=== PATIENT | male | born 1945 | race Caucasian/White ===

== ENCOUNTER 2019-02-07 20:45 | Day surgery (SDC) | payer MEDICARE ==
[~2019-02-07] VITALS: Ht 172.7 cm; Wt 83.7 kg
[~2019-02-07 20:45] MED LIST: HYDR-2890 PO
[2019-02-07] MEDS ORDERED: NS IV 1000 ML 1,000 ML ONE ×2 (20:51→21:23)
[2019-02-07] MEDS ORDERED: ASPIRIN 81 MG CHEW (CHILDREN'S ASA) PO ONE (21:00)
[2019-02-07] MEDS: NITROGLYCERIN 0.4 MG SL TABS BTL 25'S SL PRN ×3 (21:03→21:13)
[2019-02-07 21:04] LABS: BASOPHILS % (AUTO) 0 % (0-10); EOSINOPHILS # (AUTO) 0.2 10^3/uL (0.0-0.3); EOSINOPHILS % (AUTO) 2 % (0-10); HEMATOCRIT 47 % (40-54); HEMOGLOBIN 15.5 G/DL (13.3-17.7); LYMPHOCYTES # (AUTO) 3.6 X 10^3 (1.0-4.0); LYMPHOCYTES % (AUTO) 28 % (12-44); MEAN CORPUSCULAR HEMOGLOBIN 32 PG (25-34); MEAN CORPUSCULAR HGB CONC 33 G/DL (32-36); MEAN CORPUSCULAR VOLUME 97 FL (80-99); MEAN PLATELET VOLUME 10.4 FL (7.4-10.4); MONOCYTES # (AUTO) 0.6 X 10^3 (0.0-1.0); MONOCYTES % (AUTO) 5 % (0-12); NEUTROPHILS # (AUTO) 8.5 X 10^3 (1.8-7.8); NEUTROPHILS % (AUTO) 66 % (42-75); PLATELET COUNT 303 10^3/uL (130-400); RED CELL DISTRIBUTION WIDTH 14.3 % (10.0-14.5)
--- NOTE | 2019-02-07 21:12 | ED Chest Pain ---
General Chief Complaint: Chest Pain Stated Complaint: HEAVY PAIN IN HEART Nursing Triage Note: pt arrives with c/o "heavy chest" onset 1 hour prior to arrival. pt states he takes a full dose of asa daily. pt states history of copd. pt is a daily drinker. pt states he also feels clammy. heart rate of 40-50 currently. Nursing Sepsis Screen: No Definite Risk Source: patient Exam Limitations: no limitations History of Present Illness Date Seen by Provider: Feb 07, 2019 Time Seen by Provider: 20:48 Initial Comments Here with report of chest pressure and heaviness that started approximately one hour prior to arrival. Associated with sweating and low heart rate in the 40s and 50s. Also had radiation to the left arm. Never had anything like this before. Does smoke. Has not had previous heart catheter. Denies nausea and vomiting. Does feel weak and overall not right. Timing/Duration: 1 hour Severity/Quality: moderate, pressure Location: central Radiation: arms (left) Prior CP/Workup: no prior cardiac workup ASA po RETAIL BUSINESS MANAGER: Yes (325 mg) NTG SL RETAIL BUSINESS MANAGER: No Associated Symptoms: No abdominal pain, No back pain; diaphoresis; No fever/chills, No nausea/vomiting; shortness of breath; No weakness Allergies and Home Medications Allergies Coded Allergies: No Known Drug Allergies (Unverified , 10/06/11) Home Medications Hydrocodone Bit/Acetaminophen 1 Each Tablet, 1 EACH PO NEEDED Prescribed by: YANI MENCHACA on 10/06/11 1000 Patient Home Medication List Home Medication List Reviewed: Yes Review of Systems Review of Systems Constitutional: see HPI; No chills; diaphoresis; No fever EENTM: No Symptoms Reported Respiratory: No Symptoms Reported Cardiovascular: Chest Pain; Denies Edema; Irregular Heart Rate, Lightheadedness Gastrointestinal: Denies Nausea, Denies Vomiting Genitourinary: No Symptoms Reported Musculoskeletal: No back pain; muscle pain Skin: no symptoms reported Psychiatric/Neurological: No Symptoms Reported All Other Systems Reviewed Negative Unless Noted: Yes Past Ujobdau-Qqrmsi-Ihhoqm Hx Past Med/Social Hx: Reviewed Nursing Past Med/Soc Hx Patient Social History Alcohol Use: Regular Use Alcohol Beverage of Choice: [place], Vodka Recreational Drug Use: No Smoking Status: Current Everyday Smoker Recent Foreign Travel: No Contact w/Someone Who Travel: No Recent Infectious Disease Expo: No Physical Abuse: No Sexual Abuse: No Mistreated: No Fear: No Past Medical History Surgeries: Yes Orthopedic Respiratory: Yes COPD Cardiac: Yes High Cholesterol Neurological: No Genitourinary: No Gastrointestinal: No Musculoskeletal: No Endocrine: No Family Medical History Reviewed Nursing Family Hx No Pertinent Family Hx Physical Exam Vital Signs Vital Signs - First Documented 02/07/19 20:51 Temp 97.6 Pulse 45 Resp 18 B/P (MAP) 156/89 (111) Capillary Refill : Less Than 3 Seconds Height, Weight, BMI Height: 5'8" Weight: 180lbs. oz. 81.237713df; 27.37 BMI Method:Stated General Appearance: WD/WN, Mild Distress HEENT: PERRL/EOMI, Pharynx Normal Neck: Non Tender, Supple Respiratory: No Accessory Muscle Use, Wheezing (bilateral bases) Cardiovascular: No Murmur, Bradycardia Gastrointestinal: Non Tender, Soft Extremity: Normal Range of Motion, Non Tender Neurologic/Psychiatric: Alert, Oriented x3 Skin: Normal Color, Warm/Dry Progress/Results/Core Measures Results/Orders Lab Results Laboratory Tests Test 02/07/19 20:53 Range/Units White Blood Count 13.0 H 4.3-11.0 10^3/uL Red Blood Count 4.90 4.35-5.85 10^6/uL Hemoglobin 15.5 13.3-17.7 G/DL Hematocrit 47 40-54 % Mean Corpuscular Volume 97 80-99 FL Mean Corpuscular Hemoglobin 32 25-34 PG Mean Corpuscular Hemoglobin Concent 33 32-36 G/DL Red Cell Distribution Width 14.3 10.0-14.5 % Platelet Count 303 130-400 10^3/uL Mean Platelet Volume 10.4 7.4-10.4 FL Neutrophils (%) (Auto) 66 42-75 % Lymphocytes (%) (Auto) 28 12-44 % Monocytes (%) (Auto) 5 0-12 % Eosinophils (%) (Auto) 2 0-10 % Basophils (%) (Auto) 0 0-10 % Neutrophils # (Auto) 8.5 H 1.8-7.8 X 10^3 Lymphocytes # (Auto) 3.6 1.0-4.0 X 10^3 Monocytes # (Auto) 0.6 0.0-1.0 X 10^3 Eosinophils # (Auto) 0.2 0.0-0.3 10^3/uL Basophils # (Auto) 0.0 0.0-0.1 10^3/uL Sodium Level 144 135-145 MMOL/L Potassium Level 4.7 3.6-5.0 MMOL/L Chloride Level 107 98-107 MMOL/L Carbon Dioxide Level 25 21-32 MMOL/L Anion Gap 12 5-14 MMOL/L Blood Urea Nitrogen 15 7-18 MG/DL Creatinine 1.08 0.60-1.30 MG/DL Estimat Glomerular Filtration Rate > 60 BUN/Creatinine Ratio 14 Glucose Level 170 H 70-105 MG/DL Calcium Level 8.9 8.5-10.1 MG/DL Corrected Calcium 8.7 8.5-10.1 MG/DL Magnesium Level 2.2 1.6-2.4 MG/DL Total Bilirubin 0.3 0.1-1.0 MG/DL Aspartate Amino Transf (AST/SGOT) 29 5-34 U/L Alanine Aminotransferase (ALT/SGPT) 20 0-55 U/L Alkaline Phosphatase 58 40-136 U/L Total Protein 7.2 6.4-8.2 GM/DL Albumin 4.3 3.2-4.5 GM/DL My Orders Orders - AKILAH KNOWLES MD Cbc With Automated Diff (02/07/19 20:47) Magnesium (02/07/19 20:47) Chest 1 View, Ap/Pa Only (02/07/19 20:47) Ekg Tracing (02/07/19 20:47) Cardiac Profile 1 (02/07/19 20:47) Comprehensive Metabolic Panel (02/07/19 20:47) Myoglobin Serum (02/07/19 20:47) Protime With Inr (02/07/19 20:47) Partial Thromboplastin Time (02/07/19 20:47) O2 (02/07/19 20:47) Monitor-Rhythm Ecg Trace Only (02/07/19 20:47) Lipid Panel (02/08/19 06:00) Ed Iv/Invasive Line Start (02/07/19 20:47) Nitroglycerin 0.4 Mg Btl 25's (Nitrostat (02/07/19 21:00) Ns Iv 1000 Ml (Sodium Chloride 0.9%) (02/07/19 20:51) Ns Iv 1000 Ml (Sodium Chloride 0.9%) (02/07/19 21:15) Midazolam Injection (Versed Injection) (02/07/19 21:23) Fentanyl Injection (Sublimaze Injection (02/07/19 21:23) Heparin (Bolus Per Protocol) (Heparin (B (02/07/19 21:23) Ns Iv 1000 Ml (Sodium Chloride 0.9%) (02/07/19 21:23) Nitro Drip 83817 Mcg/D5w (Nitroglycerin (02/07/19 21:23) Heparin (Insurance Claims Assistant) (Heparin (Insurance Claims Assistant)) (02/07/19 21:23) Lidocaine 1% Inj 20 Ml (Xylocaine 1% Inj (02/07/19 21:23) Medications Given in ED Current Medications Medications Dose Ordered Sig/Himanshu Route Start Time Stop Time Status Last Admin Dose Admin Nitroglycerin 0.4 mg UD PRN SL 02/07/19 21:00 02/07/19 21:14 DC 02/07/19 21:13 0.4 MG Vital Signs/I&O 02/07/19 02/07/19 02/07/19 20:51 20:51 20:51 Temp 97.6 Pulse 45 Resp 18 B/P (MAP) 156/89 (111) Pulse Ox 95 95 O2 Delivery Room Air Room Air Room Air Blood Pressure Mean: 111 Progress Progress Note : Progress Note Seen and evaluated on arrival. IV, labs, EKG and chest x-ray ordered. ASA 324 initially ordered but canceled. Nitroglycerin sublingual ordered for chest pain. EKG concerning and I did discuss the case with Dr. Sheridan at 2054. Given my concerns and findings on EKG he has requested Insurance Claims Assistant to be activated. They were called. Findings concerns discussed with patient and family who agree with the plan. 2134: Patient to Insurance Claims Assistant. Dr. Sheridan is in with the patient. Pain has decreased to 3 out of 5 after 3 nitroglycerin sublingual. Patient did get 1 L of normal saline to maintain blood pressure. Initial ECG Impression Date: Feb 07, 2019 Initial ECG Impression Time: 20:50 Initial ECG Rate: 44 Initial ECG Rhythm: S.Lee Initial ECG Comparisson: No Previous ECG Available Comment Sinus bradycardia with borderline ST elevation in the lateral leads V3 through V5 and to a lesser extent V2 and V6. Abnormal EKG. No previous available for comparison. Interpreted by me. Diagnostic Imaging Diagonstic Imaging: Xray Plain Films/CT/US/NM/MRI: chest Comments NAME: RIGO EATON [facility] REC#: [id number] PT STATUS: REG ER : 1945 PHYSICIAN: AKILAH KNOWLES MD ADMIT DATE: 02/07/19/ER Signed Date of Exam: 02/07/19 CHEST 1 VIEW, AP/PA ONLY EXAM: Chest 1 view, AP/PA only. INDICATION: Chest heaviness. COMPARISON: CT chest from 07/27/2015. FINDINGS: Normal heart size and central pulmonary vascularity. Calcified aorta. No focal pulmonary opacity, pleural effusion or pneumothorax. No acute osseous findings. IMPRESSION: No acute cardiopulmonary findings. Dictated by: Dictated on workstation # [id number] Dict: 02/07/192108 Trans: 02/07/192114 Interpreted by: MILI WINSTON MD Electronically signed by: MILI WINSTON MD 02/07/192114 Departure Communication (Admissions) Time/Spoke to Admitting Phy: 20:55 Impression Primary Impression: Chest pain Qualified Codes: R07.9 - Chest pain, unspecified Disposition: 09 ADMITTED INPATIENT Condition: Stable Admissions Decision to Admit Reason: Admit from ER (General) Decision to Admit/Date: Feb 07, 2019 Time/Decision to Admit Time: 20:55 Departure-Patient Inst. Referrals: NO,LOCAL PHYSICIAN (PCP) Primary Care Physician AKILAH KNOWLES MD Feb 07, 2019 21:12
[2019-02-07] MEDS ORDERED: MIDAZOLAM 5 MG/5 ML (VERSED) VIAL ONE (21:23)
[2019-02-07] MEDS ORDERED: HEParin 1000 UNIT/ML (10ML VIAL) FOR BOLUS ONE (21:23)
[2019-02-07] MEDS ORDERED: fentaNYL INJECTION 100 MCG/2 ML AMP ONE (21:23)
[2019-02-07] MEDS ORDERED: NITRO DRIP 25000 MCG/D5W 0 ML IV ONE (21:23)
[2019-02-07] MEDS ORDERED: HEParin (CATH LAB) 2,000 ML IV ONE (21:23)
[2019-02-07] MEDS ORDERED: LIDOCAINE 1% INJ 20 ML 20 ML VIAL ONE (21:23)
[2019-02-07] MEDS: NS IV 1000 ML 1,000 ML IV SCH ×3 (21:24→23:38)
[2019-02-07 21:27] LABS: INR 1.4 (0.8-1.4); PROTHROMBIN TIME PATIENT 17.7 SEC (12.2-14.7)
[2019-02-07 21:33] LABS: ALANINE AMINOTRANSFERASE 20 U/L (0-55); ALBUMIN 4.3 GM/DL (3.2-4.5); ALKALINE PHOSPHATASE 58 U/L (40-136); BILIRUBIN,TOTAL 0.3 MG/DL (0.1-1.0); BUN/CREATININE RATIO 14; CALCIUM 8.9 MG/DL (8.5-10.1); CARBON DIOXIDE 25 MMOL/L (21-32); CHLORIDE 107 MMOL/L (98-107); CREATININE SERUM 1.08 MG/DL (0.60-1.30); GFR ESTIMATED > 60; GLUCOSE 170 MG/DL (70-105); MAGNESIUM 2.2 MG/DL (1.6-2.4); POTASSIUM 4.7 MMOL/L (3.6-5.0); SODIUM 144 MMOL/L (135-145); TOTAL PROTEIN 7.2 GM/DL (6.4-8.2)
[2019-02-07] MEDS ORDERED: EPTIFIBATIDE BOLUS 20 ML IV ONE (21:46)
--- NOTE | 2019-02-07 21:48 | Cardiology History & Physical ---
HPI-Cardiology Cardiology H&P Date of Admission 02/07/19 Primary Care Physician Carly,Local Physician Attending Physician Luiz Sheridan MD, MA FACP [facility] Consulting Physician STEVEN CC: Chest pain HPI: 73 yo man with onset of chest pain 1-2 hours prior to admission radiating to L arm and shoulder and associated with some diaphoresis, mod in intensity, improved but not relieved with s/l NTG, not experienced before. Has chronic, slowly progressive exertional shortness of breath. Denies palp or syncope or ankle swelling Review of Systems-Cardiology Review of Systems Constitutional: No weight loss, No weight gain Eyes: No vision change Ears/Nose/Throat: No ear discharge, No nasal drainage, No recent hearing loss Cardiovascular: As described under HPI Gastrointestinal: No constipation, No diarrhea, No nausea, No vomiting Genitourinary: No dysuria, No hematuria, No urine frequency changes Musculoskeletal: No back pain, No joint pain Skin: No rash, No ulcerations Psychiatric/Neurological: No seizure, No focal weakness, No syncope Hematologic: No bleeding abnormalities All Other Systems Reviewed Negative Unless Noted: Yes UOM-[place]qux Hx Patient Social History Alcohol Use: Regular Use Recreational Drug Use: No Smoking Status: Current Everyday Smoker Recent Foreign Travel: No Recent Infectious Disease Expo: No Past Medical History PMH As described under Assessment. Family Medical History Family Medical History: Father had IA in his mid 70s Allergies and Home Medications Allergies Coded Allergies: No Known Drug Allergies (Unverified , 10/06/11) Home Medications Hydrocodone Bit/Acetaminophen 1 Each Tablet, 1 EACH PO NEEDED Prescribed by: YANI MENCHACA on 10/06/11 1000 Patient Home Medication List Home Medication List Reviewed: Yes Physical Exam-Cardiology Physical Exam Vital Signs/I&O 02/07/19 02/07/19 02/07/19 02/07/19 20:51 20:51 20:51 21:40 Temp 97.6 97.6 Pulse 45 45 Resp 18 18 B/P (MAP) 156/89 (111) 156/89 (111) Pulse Ox 95 95 95 O2 Delivery Room Air Room Air Room Air Room Air Capillary Refill : Less Than 3 Seconds Constitutional: AAO x 3, well-developed, well-nourished HEENT: PERRL, EOMI; No xanthelasmas are seen Neck: No carotid bruit; carotid pulses are 2 + bilaterally, with good upstrokes Respiratory: No accessory muscle use; lungs clear to percussion, other (fair air entry, somewhat prolonged exp phase) Cardiovascular: regular rate-rhythm, S1 and S2, systolic murmur (2/6 SANTOS at card base) Gastrointestinal: No tender; soft; No guarding, No rebound; audible bowel sounds Extremities: No clubbing, No cyanosis, No significant edema Neurologic/Psychiatric: oriented x 3, other (moves all limbs equally) Skin: No rash, No ulcerations Data Review Labs Laboratory Tests 02/07/19 20:53: White Blood Count 13.0H, Red Blood Count 4.90, Hemoglobin 15.5, Hematocrit 47, Mean Corpuscular Volume 97, Mean Corpuscular Hemoglobin 32, Mean Corpuscular Hemoglobin Concent 33, Red Cell Distribution Width 14.3, Platelet Count 303, Mean Platelet Volume 10.4, Neutrophils (%) (Auto) 66, Lymphocytes (%) (Auto) 28, Monocytes (%) (Auto) 5, Eosinophils (%) (Auto) 2, Basophils (%) (Auto) 0, Neutrophils # (Auto) 8.5H, Lymphocytes # (Auto) 3.6, Monocytes # (Auto) 0.6, Eosinophils # (Auto) 0.2, Basophils # (Auto) 0.0, Prothrombin Time 17.7H, INR Comment 1.4, Activated Partial Thromboplast Time 29, Sodium Level 144, Potassium Level 4.7, Chloride Level 107, Carbon Dioxide Level 25, Anion Gap 12, Blood Urea Nitrogen 15, Creatinine 1.08, Estimat Glomerular Filtration Rate > 60, BUN/Creatinine Ratio 14, Glucose Level 170H, Calcium Level 8.9, Corrected Calcium 8.7, Magnesium Level 2.2, Total Bilirubin 0.3, Aspartate Amino Transf (AST/SGOT) 29, Alanine Aminotransferase (ALT/SGPT) 20, Alkaline Phosphatase 58, Myoglobin 20.0, Troponin I < 0.028, Total Protein 7.2, Albumin 4.3 Laboratory Tests 02/07/19 20:53 A/P-Cardiology Assessment/Admission Diagnosis Chest pain: NSTEMI vs unstable angina Chronic tobacco use H/o hyperlipidemia Admission Status: Observation Discussion and Recomendations * Urgent cath because of continuing symptoms and suspicion of ACS * I had a long and detailed discussion with him and explained the rationale, procedure, risks, benefits, potential complications, and alternatives of card cath and possible ad hoc cor intervention. He understands and provides informed consent Clinical Quality Measures AMI/AHF: ASA po Prior to arrival: Yes (325 mg) LUIZ SHERIDAN MD FACP FACC CCDS Feb 07, 2019 21:48
[2019-02-07] MEDS ORDERED: ASPIRIN 81 MG CHEW (CHILDREN'S ASA) ONE (22:25)
[2019-02-07] MEDS ORDERED: CLOPIDOGREL 300 MG (PLAVIX) TABLET PO ONE (22:25)
[2019-02-07] MEDS ORDERED: TEMAZEPAM 7.5 MG CAP (RESTORIL) PO PRN (22:45)
[2019-02-07] MEDS ORDERED: ATORVASTATIN 20 MG (LIPITOR) TABLET PO SCH (22:45)
[2019-02-07] MEDS ORDERED: PATIENT MAY USE OWN MEDS, ALL PO SCH (22:45)
[2019-02-07] MEDS ORDERED: ACETAMINOPHEN 325 MG TABLET PO PRN (22:45)
[2019-02-07 22:56] VITALS: BP 143/85
[2019-02-07 23:15] VITALS: BP 128/80
--- NOTE | 2019-02-07 23:21 | CARDIAC CATHETERIZATION ---
DATE OF SERVICE: 02/07/2019 CARDIAC CATHETERIZATION REPORT The patient is a 73-year-old man with a chronic history of tobacco use (1 pack per day) who presented to the emergency room with chest pain and the clinical picture was consistent with acute non-ST elevation myocardial infarction. His chest discomfort continued and emergency cardiac catheterization was carried out after having obtained an informed consent. DESCRIPTION OF PROCEDURE: He was brought to the cardiac catheterization laboratory. Right groin was prepared and draped in the usual sterile fashion. Lidocaine 1% was used for local anesthesia. Modified Seldinger technique was used to advance a 6-Fijian sheath in right femoral artery. A 6-Fijian JL4 catheter for left coronary angiography, and subsequently, percutaneous intervention was carried out to the mid left anterior descending artery that is described below. Following completion of the intervention, we used a 6-Fijian JR4 catheter was used for right coronary angiography and a 6-Fijian pigtail catheter for left heart catheterization and left ventricular angiography. The pigtail was pulled back and then removed. Angiography of the right femoral artery was carried out through the sheath. Mynx was used to achieve hemostasis. He tolerated the procedure well. PERCUTANEOUS INTERVENTION TO THE LEFT ANTERIOR DESCENDING: The left anterior descending artery was exhibiting 90% mid vessel stenosis. We used a 6-Fijian JL4.5 guide catheter to engage the left coronary artery and advanced a choice floppy wire across the lesion and carried out balloon angioplasty with Emerge 2.5 x 20 mm balloon. This was followed by stenting of the lesion with Alpine Xience 3.0 mm x 18 mm stent that was deployed at 20 atmospheres. Subsequent angiographies revealed 0% residual stenosis. We postdilated the proximal 3/4 of the stented segment with a Quantum NC 3.5 x 15 mm balloon. This was done because the proximal part of the stented segment was slightly larger than the distal part of the stented segment. Flow throughout the vessel remained normal. The patient received a double bolus of Integrilin and 6000 units of intravenous heparin at the beginning of the procedure. He received 182 mg of oral aspirin and 600 mg of oral Plavix at the end of the procedure. HEMODYNAMICS: Left ventricular end-diastolic pressure following coronary angiography was 24 mmHg. There is no significant pressure gradient on pullback across the aortic valve. Ascending aortic pressure was 138/72 with a mean of 83 mmHg. CORONARY ANGIOGRAPHY: Left main coronary artery is free of significant disease. Left anterior descending artery had 90% mid vessel stenosis that was stented as described above. The second diagonal branch has 70% ostial stenosis, but the vessel is very small caliber and was not intervened on. The rest of left coronary system has mild plaques. Right coronary artery is large and dominant and is ectatic and has a somewhat sluggish flow. LEFT VENTRICULAR ANGIOGRAPHY: Left ventricular angiography was carried out in the right anterior oblique projection. In this view, no distinct regional wall motion abnormalities were seen and left ventricular ejection fraction was approximately 50%. CONCLUSIONS: 1. Coronary artery disease primarily consisting of 90% mid vessel stenosis of the left anterior descending artery that was stented with Alpine Xience 3.0 mm x 18 mm stent and was postdilated with 3.5 x 15 mm Quantum NC balloon. The first diagonal branch is of a very small caliber and has 70% ostial stenosis. Right coronary artery is large and ectatic with a somewhat sluggish flow. 2. Well preserved left ventricular systolic function with ejection fraction of 50%. 3. Elevated left ventricular end-diastolic pressure. DISCUSSION AND RECOMMENDATIONS: Dual antiplatelet therapy has been initiated. Statin has been initiated. He is not a suitable candidate for beta blockers because he exhibits considerable sinus bradycardia at rest. We have advised him to quit smoking immediately and completely. Job ID: [id number] DocumentID: [id number] Dictated Date: 02/07/2019 22:52:36 Merchandising Execution Manager Date: 02/07/2019 23:21:00 Dictated By: ETHAN ACEVEDO MD, MA, FACP, FACC, MTDD
[2019-02-07 23:30] VITALS: BP 136/83
[2019-02-07 23:45] VITALS: BP 136/80
[2019-02-08] VITALS (8 sets, daily range): BP systolic 128–148; BP diastolic 79–93
[2019-02-08] MEDS: NS IV 1000 ML 1,000 ML IV SCH (02:15)
[2019-02-08 03:48] LABS: HEMOGLOBIN 14.2 G/DL (13.3-17.7); MEAN PLATELET VOLUME 10.6 FL (7.4-10.4); RED CELL DISTRIBUTION WIDTH 14.1 % (10.0-14.5); WHITE BLOOD COUNT 8.4 10^3/uL (4.3-11.0)
[2019-02-08 04:08] LABS: BUN/CREATININE RATIO 13; CALCIUM 8.1 MG/DL (8.5-10.1); CARBON DIOXIDE 21 MMOL/L (21-32); CHLORIDE 108 MMOL/L (98-107); CHOLESTEROL 208 MG/DL (< 200); CREATININE SERUM 0.75 MG/DL (0.60-1.30); GFR ESTIMATED > 60; GLUCOSE 122 MG/DL (70-105); HDL CHOLESTEROL 58 MG/DL (40-60); POTASSIUM 4.6 MMOL/L (3.6-5.0); SODIUM 138 MMOL/L (135-145); TRIGLYCERIDES 124 MG/DL (<150); VLDL CHOLESTEROL 25 MG/DL (5-40)
--- NOTE | 2019-02-08 08:43 | Progress Note - Cardiology ---
Cardiology SOAP Progress Note Subjective: No cp or palp or syncope or shortness of breath or groin discomfort. Anxious to go home. Does not wish to stay in the hosp any longer. Objective: I&O/Vital Signs 02/07/19 02/07/19 02/07/19 02/07/19 20:51 20:51 20:51 21:40 Temp 97.6 97.6 Pulse 45 45 Resp 18 18 B/P (MAP) 156/89 (111) 156/89 (111) Pulse Ox 95 95 95 O2 Delivery Room Air Room Air Room Air Room Air 02/07/19 02/07/19 02/07/19 02/07/19 22:56 23:03 23:15 23:30 Temp 97.0 Pulse 54 49 46 92 Resp 11 15 28 B/P (MAP) 143/85 (104) 128/80 (96) 136/83 (100) Pulse Ox 100 99 100 O2 Delivery Nasal Cannula Nasal Cannula Nasal Cannula O2 Flow Rate 3.00 3.00 3.00 02/07/19 02/08/19 02/08/19 02/08/19 23:45 00:00 00:30 01:00 Pulse 57 56 91 58 Resp 12 17 15 17 B/P (MAP) 136/80 (98) 135/80 (98) 132/79 (96) 137/84 (101) Pulse Ox 100 100 99 98 O2 Delivery Nasal Cannula Nasal Cannula Nasal Cannula Nasal Cannula O2 Flow Rate 3.00 3.00 3.00 3.00 02/08/19 02/08/19 02/08/19 02/08/19 01:00 02:00 03:00 03:56 Temp 97.8 Pulse 58 60 68 72 Resp 20 30 20 B/P (MAP) 137/88 (104) 128/93 (105) 144/91 (108) Pulse Ox 99 98 94 O2 Delivery Nasal Cannula Nasal Cannula Room Air O2 Flow Rate 3.00 3.00 02/08/19 02/08/19 02/08/19 04:00 05:00 07:00 Pulse 78 Resp 16 B/P (MAP) 144/91 (108) 148/91 (110) Pulse Ox 95 O2 Delivery Room Air Room Air 02/08/19 00:00 Intake Total 0 ml Output Total 250 ml Balance -250 ml Weight (Pounds): 184 Weight (Ounces): 9.0 Weight (Calculated Kilograms): 83.810523 Groin site without hematoma: Yes Condition: DP/PT pulses palpable Bruising: mild bruising Constitutional: AAO x 3, well-developed, well-nourished Respiratory: No accessory muscle use; lungs clear to percussion, other (fair air entry, somewhat prolonged exp phase) Cardiovascular: regular rate-rhythm, S1 and S2, systolic murmur (2/6 SANTOS at card base) Gastrointestional: No tender; soft; No guarding, No rebound; audible bowel sounds Extremities: No clubbing, No cyanosis, No significant edema Neurologic/Psychiatric: oriented x 3, other (moves all limbs equally) Skin: No rash, No ulcerations Results/Procedures: Labs Laboratory Tests 02/07/19 20:53: White Blood Count 13.0H, Red Blood Count 4.90, Hemoglobin 15.5, Hematocrit 47, Mean Corpuscular Volume 97, Mean Corpuscular Hemoglobin 32, Mean Corpuscular Hemoglobin Concent 33, Red Cell Distribution Width 14.3, Platelet Count 303, Mean Platelet Volume 10.4, Neutrophils (%) (Auto) 66, Lymphocytes (%) (Auto) 28, Monocytes (%) (Auto) 5, Eosinophils (%) (Auto) 2, Basophils (%) (Auto) 0, Neutrophils # (Auto) 8.5H, Lymphocytes # (Auto) 3.6, Monocytes # (Auto) 0.6, Eosinophils # (Auto) 0.2, Basophils # (Auto) 0.0, Prothrombin Time 17.7H, INR Comment 1.4, Activated Partial Thromboplast Time 29, Sodium Level 144, Potassium Level 4.7, Chloride Level 107, Carbon Dioxide Level 25, Anion Gap 12, Blood Urea Nitrogen 15, Creatinine 1.08, Estimat Glomerular Filtration Rate > 60, BUN/Creatinine Ratio 14, Glucose Level 170H, Calcium Level 8.9, Corrected Calcium 8.7, Magnesium Level 2.2, Total Bilirubin 0.3, Aspartate Amino Transf (AST/SGOT) 29, Alanine Aminotransferase (ALT/SGPT) 20, Alkaline Phosphatase 58, Myoglobin 20.0, Troponin I < 0.028, Total Protein 7.2, Albumin 4.3 02/08/19 03:00: White Blood Count 8.4, Red Blood Count 4.51, Hemoglobin 14.2, Hematocrit 44, Mean Corpuscular Volume 97, Mean Corpuscular Hemoglobin 32, Mean Corpuscular Hemoglobin Concent 33, Red Cell Distribution Width 14.1, Platelet Count 235, Mean Platelet Volume 10.6H, Sodium Level 138, Potassium Level 4.6, Chloride Level 108H, Carbon Dioxide Level 21, Anion Gap 9, Blood Urea Nitrogen 10, Creatinine 0.75, Estimat Glomerular Filtration Rate > 60, BUN/Creatinine Ratio 13, Glucose Level 122H, Calcium Level 8.1L, Triglycerides Level 124, Cholesterol Level 208H, LDL Cholesterol Direct 145H, VLDL Cholesterol 25, HDL Cholesterol 58, Thyroid Stimulating Hormone (TSH) 0.35 Laboratory Tests 02/07/19 20:53 02/08/19 03:00 A/P: Assessment: Ac NSTEMI treated with PCI to LAD on 02/07/19 Card cath of 02/07/19: 90% mid LAD stenosis treated with Alp Xience 3 x 18 stent that was post-dilated with a 3.5 mm balloon, 70% ostial stenosis of a small caliber D2, ectatic RCA with sluggish flow, elevated LVEDP, LVEF 55% Sinus bradycardia and sinus arrhythmia. Unable to tolerate beta-lynne because of bradycardia that is quite marked at time Hypertension Impaired fasting glucose Hyperlipidemia Chronic tobacco use Plan: * DAPT because of cor stents and NH * Not suitable for beta-lynne because of bradycardia * Continue statin * Advised to quit smoking immediately and completely * [place]-inhib for BP control * Close outpt f/u for now Clinical Quality Measures AMI/AHF: ASA po Prior to arrival: Yes (325 mg) ETHAN ACEVEDO MD FACP FAC CCDS Feb 08, 2019 08:43
--- NOTE | 2019-02-08 08:48 | Cardiology Discharge Summary ---
Diagnosis/Chief Complaint Date of Admission 02/07/19 Date of Discharge 02/08/19 Final/Discharge Diagnosis Ac NSTEMI treated with PCI to LAD on 02/07/19 Card cath of 02/07/19: 90% mid LAD stenosis treated with Alp Xience 3 x 18 stent that was post-dilated with a 3.5 mm balloon, 70% ostial stenosis of a small ca liber D2, ectatic RCA with sluggish flow, elevated LVEDP, LVEF 55% Sinus bradycardia and sinus arrhythmia. Unable to tolerate beta-lynne because of bradycardia that is quite marked at time Hypertension Impaired fasting glucose Hyperlipidemia Chronic tobacco use Chief Complaint/HPI Chief Complaint/HPI CC: Chest pain HPI: 73 yo man with onset of chest pain 1-2 hours prior to admission radiating to L arm and shoulder and associated with some diaphoresis, mod in intensity, improved but not relieved with s/l NTG, not experienced before. Has chronic, slowly progressive exertional shortness of breath. Denies palp or syncope or ankle swelling. Please see the progress note of today's date for hosp course and condition at discharge. Discharge Summary Hospital Course Pending Labs Laboratory Tests 02/08/19 03:00: White Blood Count 8.4, Red Blood Count 4.51, Hemoglobin 14.2, Hematocrit 44, Katty n Corpuscular Volume 97, Mean Corpuscular Hemoglobin 32, Mean Corpuscular Hemoglobin Concent 33, Red Cell Distribution Width 14.1, Platelet Count 235, Mean Platelet Volume 10.6, Sodium Level 138, Potassium Level 4.6, Chloride Level 108, Carbon Dioxide Level 21, Anion Gap 9, Blood Urea Nitrogen 10, Creatinine 0.75, Estimat Glomerular Filtration Rate > 60, BUN/Creatinine Ratio 13, Glucose Level 122, Calcium Level 8.1, Triglycerides Level 124, Cholesterol Level 208, LDL Cholesterol Direct 145, VLDL Cholesterol 25, HDL Cholesterol 58, Thyroid Stimulating Hormone (TSH) 0.35 Discussion & Recommendations Home Medications Reviewed patient Home Medication Reconciliation performed by pharmacy medication reconciliations pressure testing technician and/or nursing. Patients Allergies have been reviewed. Discharge Home Medications: Reviewed and agree with Discharge Medication list on patient's Discharge Instruction sheet Clinical Quality Measures AMI/AHF: ASA po Prior to arrival: Yes (325 mg) ETHAN ACEVEDO MD FACP FAC CCDS Feb 08, 2019 08:48
[2019-02-08] MEDS ORDERED: ASPI-999 PO (08:51)
[2019-02-08] MEDS ORDERED: ATOR80TA76 PO (08:51)
[2019-02-08] MEDS ORDERED: CLOP75TA28 PO (08:51)
[2019-02-08] MEDS ORDERED: LISI-552 PO (08:51)
--- NOTE | 2019-02-08 08:52 | Discharge Inst-Post CATH ---
Discharge Inst-CATH/EP Problems Reviewed?: Yes Post Cardiac Cath/EP D/C Inst Follow Up/Plan F/u with Dr Sheridan in one week ACTIVITY * Go Home directly and rest. * Limit activity of the leg (or wrist if it was used) for 7 days including aerobics, swimming, jogging, bicycling, etc. * Restrict stair-climbing for 7 days if possible, if not, climb up with your non-cath leg, then bring together on the same step. * Avoid lifting, pushing, pulling or excessive movement of the affected extremity for 7 days. * Customary sexual activity may be resumed after 2 days-use caution not to use a position that strains or causes pain to the affected extremity. * No driving for 24 hours. * NO SMOKING. * Avoid straining for bowel movements for 7 days. * Gentle walking on level ground is allowed. * Returning to work will depend on the type of procedure and the results. Your doctor will discuss this with you. CALL YOUR DOCTOR FOR ANY OF THE FOLLOWING: *If bleeding from the puncture site occurs- Apply gentle pressure to site with clean cloth and call your doctor or EMS. * If a knot or lump forms under the skin, increases in size, or causes pain. * If bruising appears to be worsening or moving further down your leg instead of disappearing. * Temperature above 101 F. CARE OF YOUR GROIN INCISION; * Bruising or purple discoloration of the skin near the puncture site is common. * You may shower only, no bathtub bathing for 5 days. Be careful to avoid slipping as your leg may feel stiff. * If a closure device was used on your femoral artery, please see the attached guide regarding care of the device and your leg. * Leave dressing on FOR 24 hours. CARE OF YOUR WRIST INCISION; * Bruising or purple discoloration of the skin near the puncture site is common. * You may shower. * DO NOT submerge wrist. * Leave dressing on FOR 24 hours. ETHAN SHERIDAN MD [facility] CCDS Feb 08, 2019 08:51
--- NOTE | 2019-02-08 08:52 | Discharge Inst-Cardiology ---
Discharge Inst-Cardiac Problems Reviewed?: Yes Discharge Medications New Medications: Lisinopril (Lisinopril) 20 Mg Tablet 20 MG PO DAILY, #90 TAB 3 Refills Aspirin (Aspirin) 81 Mg Tab.chew 81 MG PO DAILY for 90 Days, #90 TAB 3 Refills Atorvastatin Calcium (Atorvastatin Calcium) 80 Mg Tablet 80 MG PO HS for 30 Days, #30 TAB 5 Refills Clopidogrel Bisulfate (Clopidogrel) 75 Mg Tablet 75 MG PO DAILY for 90 Days, #90 TAB 3 Refills Continued Medications: Hydrocodone Bit/Acetaminophen (Hydrocodon-Acetaminophn 10-325) 1 Each Tablet 1 EACH PO NEEDED, #30 Patient Instructions Patient Instructions: NO SMOKING ETHAN ACEVEDO MD FACP FAC CCDS Feb 08, 2019 08:52
[2019-02-08] MEDS ORDERED: CLOPIDOGREL 75 MG (PLAVIX) TABLET PO SCH (09:00)
[2019-02-08] MEDS ORDERED: ASPIRIN 81 MG CHEW (CHILDREN'S ASA) PO SCH (09:00)
[2019-02-08] MEDS ORDERED: ATORVASTATIN 80 MG (LIPITOR) TABLET PO SCH (21:00)
== END 2019-02-08 09:35 | disposition home or self-care (01) ==
LOC: EDUNIT# 20:45 → ER 20:47 → CATH 21:38 → ICU 22:56 → CATH 02-08 09:35
PROVIDERS: ATTEND Internal Medicine Cardiovascular Disease
DX: I21.4 Non-ST elevation (NSTEMI) myocardial infarction (principal); I49.9 Cardiac arrhythmia, unspecified; I10 Essential (primary) hypertension; J44.9 Chronic obstructive pulmonary disease, unspecified; E78.00 Pure hypercholesterolemia, unspecified; E78.5 Hyperlipidemia, unspecified; R73.01 Impaired fasting glucose; R00.1 Bradycardia, unspecified; F17.210 Nicotine dependence, cigarettes, uncomplicated; Z82.49 Family history of ischemic heart disease and other diseases of the circulatory system; Z79.899 Other long term (current) drug therapy; Z79.82 Long term (current) use of aspirin; Z79.02 Long term (current) use of antithrombotics/antiplatelets
CPT/HCPCS: 36415; 71045; 80048; 80053; 80061; 83735; 83874; 84443; 84484; 85025; 85027; 85610; 85730; 93005; 93041; 93306; 93458

== ENCOUNTER → 2019-08-25 | Outpatient (CLI) | payer MEDICARE ==
[~2019-08-25] MED LIST changes: +ASPI-999 PO; +ATOR80TA76 PO; +CATHETER FLUSH 10 ML SYR IV PRN; +CLOP75TA28 PO; +HOLD METFORMIN - RECEIVED CONTRAST 20 ML VIAL IV SCH; +IOHEXOL 350 MG/ML 100 ML (OMNIPAQUE 350) VIAL IV ONE; +LISI-552 PO; +NS 100 ML (IVPB) BAG IV ONE; +RT-ALBUTEROL SULF 2.5 MG/3 ML PRE-MIX VIAL INH ONE
[2019-08-25 09:49] LABS: BUN/CREATININE RATIO 11; CREATININE SERUM 1.08 MG/DL (0.60-1.30); GFR ESTIMATED > 60
--- NOTE | 2019-08-25 13:24 | Diagnostic Imaging Report ---
PROCEDURE: CT chest with contrast only. TECHNIQUE: Multiple contiguous axial images were obtained through the chest after administration of intravenous contrast. Auto Exposure Controls were utilized during the CT exam to meet ALARA standards for radiation dose reduction. INDICATION: Shortness of breath. FINDINGS: The previous CT chest exam of 07/27/2015 noted a 6 mm wispy pulmonary nodule in the right middle lobe. That finding now measures approximately 6.6 mm. There may be a small amount of scar formation in this area, but this nodular density has a generally benign appearance. The lungs are otherwise generally clear. There is no evidence for failure, pneumonia, or for a pleural effusion. There are emphysematous changes involving both lungs, particularly the lung apices. The heart is similar in size to the prior exam. Coronary artery calcifications are again noted. Also, in the interval since the prior exam, a stent has been inserted into the LAD. The ascending aorta is slightly dilated measuring 4.0 x 4.2 cm in maximum AP and transverse diameters. The appearance of the aorta is similar to the prior exam. There is no sign of a dissection. There is no definite defect within the pulmonary arteries to indicate a pulmonary embolus. There is no mediastinal or hilar adenopathy. The thyroid gland is generally unremarkable. The sections through the upper abdomen fail to show any sign of an acute abnormality. The bone windows are unremarkable for a fracture or for a destructive lesion. IMPRESSION: 1. There is no evidence for an acute cardiopulmonary abnormality. 2. The nodule in the right middle lobe seen previously has not changed significantly. Most likely, this is a benign process. 3. 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 This finding is stable when compared to the prior exam. 4. Coronary artery calcifications are noted. There has been interval insertion of a stent into the LAD since the prior exam. Dictated by: Dictated on workstation # [id number]
== END ==
LOC: RT 09:14
PROVIDERS: ATTEND Internal Medicine Critical Care Medicine
DX: Z01.812 Encounter for preprocedural laboratory examination (principal); I71.2 Thoracic aortic aneurysm, without rupture; I25.10 Atherosclerotic heart disease of native coronary artery without angina pectoris; G47.10 Hypersomnia, unspecified; R91.1 Solitary pulmonary nodule; F17.200 Nicotine dependence, unspecified, uncomplicated
CPT/HCPCS: 36415; 71260; 82565; 84520; 94060; 94726; 94729

== ENCOUNTER 2019-08-26 14:26 | Outpatient (CLI) | payer MEDICARE ==
[~2019-08-26 14:26] MED LIST changes: -CATHETER FLUSH 10 ML SYR IV PRN; -HOLD METFORMIN - RECEIVED CONTRAST 20 ML VIAL IV SCH; -IOHEXOL 350 MG/ML 100 ML (OMNIPAQUE 350) VIAL IV ONE; -NS 100 ML (IVPB) BAG IV ONE; -RT-ALBUTEROL SULF 2.5 MG/3 ML PRE-MIX VIAL INH ONE
== END 2019-08-26 15:15 | disposition home or self-care (01) ==
LOC: SLEEP 14:26
PROVIDERS: ATTEND Internal Medicine Critical Care Medicine
DX: G47.10 Hypersomnia, unspecified (principal); R06.02 Shortness of breath; Z72.0 Tobacco use

== ENCOUNTER → 2020-03-06 | Outpatient (CLI) | payer MEDICARE | LOC: CARD 09:30 | PROVIDERS: ATTEND Nurse Practitioner Family | DX: I25.10 Atherosclerotic heart disease of native coronary artery without angina pectoris (principal); I65.23 Occlusion and stenosis of bilateral carotid arteries; E78.5 Hyperlipidemia, unspecified; I27.21 Secondary pulmonary arterial hypertension | CPT/HCPCS: 93306 ==

== ENCOUNTER → 2020-06-20 | Outpatient (CLI) | payer MEDICARE ==
[~2020-06-20] VITALS: Ht 170 cm; Wt 80.0 kg
[~2020-06-20] MED LIST changes: +BAMLANIVIMAB 700 MG in NS 200 ML IV ONE; +EPINEPHrine INJECTION 1 MG/ML AMP IM PRN; +diphenhydrAMINE 50 MG/ML INJ (BENADRYL) IV PRN
[2020-06-20 08:06] VITALS: BP 130/81
[2020-06-20 10:26] VITALS: BP 111/75
== END ==
LOC: INFUSION 08:05
PROVIDERS: ATTEND Nurse Practitioner Family
DX: U07.1 COVID-19 (principal)

== ENCOUNTER → 2020-08-29 | Outpatient (CLI) | payer MEDICARE ==
[~2020-08-29] MED LIST changes: -BAMLANIVIMAB 700 MG in NS 200 ML IV ONE; +CATHETER FLUSH 10 ML SYR IV PRN; -EPINEPHrine INJECTION 1 MG/ML AMP IM PRN; +HOLD METFORMIN - RECEIVED CONTRAST 20 ML VIAL IV SCH; +IOHEXOL 350 MG/ML 100 ML (OMNIPAQUE 350) VIAL IV ONE; -LISI-552 PO; +LISI20TA26 PO; +NS 100 ML (IVPB) BAG IV ONE; -diphenhydrAMINE 50 MG/ML INJ (BENADRYL) IV PRN
[2020-08-29 09:09] LABS: BUN/CREATININE RATIO 12; CREATININE SERUM 1.11 MG/DL (0.60-1.30); GFR ESTIMATED > 60
--- NOTE | 2020-08-29 10:20 | Diagnostic Imaging Report ---
PROCEDURE: CT chest with contrast only. TECHNIQUE: Multiple contiguous axial images were obtained through the chest after administration of intravenous contrast. Auto Exposure Controls were utilized during the CT exam to meet ALARA standards for radiation dose reduction. INDICATION: Shortness of breath. The previous CT chest exam performed on 08/25/2019 noted a wispy 6 mm parenchymal abnormality on the anterior aspect of the right middle lobe. That finding is again evident and this study does not appear changed significantly in size or appearance (image 95 of 175). There is no other parenchymal lung mass identified. There are emphysematous changes involving both lungs but there is no sign of failure, pneumonia or pleural effusion to indicate an acute abnormality. On the prior study the ascending aorta measures 4.2 x 4.0 cm in maximum transverse and AP diameters. On this study the aorta now measures 4.0 x 3.9 cm. There is still no sign of a dissection. There is no defect within the pulmonary arteries to indicate a pulmonary embolus. The heart is stable in size and within normal limits. Coronary calcifications and the stent in the LAD seen on the prior study are again noted. There is no mediastinal or hilar adenopathy noted. The thyroid gland is generally unremarkable. The sections through the upper abdomen failed to show any sign of an acute abnormality. The bone windows are unremarkable for a fracture or for destructive lesion. IMPRESSION: 1. The small parenchymal density in the right middle lobe seen previously is again evident and not significantly changed. I do suspect that this is a benign process as this density does not appear to have changed significantly since 2012. 2. There is no acute cardiopulmonary abnormality evident. 3. There is coronary artery disease and a stent in the LAD. 4. There is borderline aneurysmal dilatation of the ascending aorta. Dictated by: Dictated on workstation # [id number]
== END ==
LOC: RAD 09:45
PROVIDERS: ATTEND Nurse Practitioner Family
DX: I25.10 Atherosclerotic heart disease of native coronary artery without angina pectoris (principal)
CPT/HCPCS: 36415; 71260; 82565; 84520

== ENCOUNTER → 2021-08-21 | Outpatient (CLI) | payer MEDICARE ==
[~2021-08-21] MED LIST changes: -CATHETER FLUSH 10 ML SYR IV PRN; +CATHETER FLUSH 10 ML SYR IVP PRN; -HOLD METFORMIN - RECEIVED CONTRAST 20 ML VIAL IV SCH; -IOHEXOL 350 MG/ML 100 ML (OMNIPAQUE 350) VIAL IV ONE; -NS 100 ML (IVPB) BAG IV ONE; +REGADENOSON 0.4 MG/5 ML SYR (LEXISCAN) IV ONE
[2021-08-21 09:07] VITALS: BP 126/77
--- NOTE | 2021-08-21 20:03 | STRESS TEST ---
DATE OF SERVICE: 08/21/2021 RESTING AND POST REGADENOSON TECHNETIUM-99M TETROFOSMIN SPECT CT IMAGING ORDERING PHYSICIAN: Dr. Sheridan. PRIMARY PHYSICIAN: Dr. Stark. CLINICAL DIAGNOSIS: Coronary artery disease. Baseline images were carried out after injection of 10.49 mCi of technetium-99m Tetrofosmin. This was followed by 0.4 mg regadenoson and 29 mCi of technetium-99m Tetrofosmin for stress imaging. The electrocardiogram showed sinus rhythm at baseline. There was incomplete right bundle branch block at baseline. The electrocardiogram did not change significantly with regadenoson infusion. Following regadenoson infusion, he reported some shortness of breath and chest discomfort, which resolved in a few minutes. Review of images at rest and following stress does not indicate any distinct perfusion defects consistent with significant myocardial ischemia or infarction. Some degree of diaphragmatic attenuation is seen both at rest and following regadenoson infusion. Gated images show normal global left ventricular systolic function with normal regional wall motion, including the diaphragmatic wall. Left ventricular ejection fraction calculated to be 47%, but subjectively appears to be higher than that. CONCLUSIONS: 1. No evidence of any significant myocardial ischemia or infarction is seen. 2. Normal regional wall motion. 3. Normal global left ventricular systolic function with a calculated ejection fraction of 47%, which appears subjectively higher than that. Job ID: [id number] DocumentID: [id number] Dictated Date: 08/21/2021 18:18:20 Staff [employer] Warfare Officer Date: 08/21/2021 20:01:53 Dictated By: ETHAN SHERIDAN MD, MA, FACP, FACC,
== END ==
LOC: CARD 08:15
PROVIDERS: ATTEND Internal Medicine Cardiovascular Disease
DX: I25.10 Atherosclerotic heart disease of native coronary artery without angina pectoris (principal)
CPT/HCPCS: 78452; 93017; A9502

== ENCOUNTER → 2022-11-21 | Outpatient (CLI) | payer MEDICARE ==
[~2022-11-21] MED LIST changes: -CATHETER FLUSH 10 ML SYR IVP PRN; -REGADENOSON 0.4 MG/5 ML SYR (LEXISCAN) IV ONE
== END ==
LOC: CARD 09:29
PROVIDERS: ATTEND Internal Medicine Cardiovascular Disease
DX: I25.10 Atherosclerotic heart disease of native coronary artery without angina pectoris (principal)
CPT/HCPCS: 93306

== ENCOUNTER → 2022-12-12 | Outpatient (CLI) | payer MEDICARE ==
--- NOTE | 2022-12-12 16:38 | Diagnostic Imaging Report ---
EXAMINATION: CT chest without contrast (lung screening). TECHNIQUE: Multiple contiguous axial images were obtained through the chest without the use of intravenous contrast according to lung cancer screening protocol. All CT scans use one or more of the following dose optimizing techniques: Automated exposure control, MA and/or KvP adjustment based on patient size and exam type or iterative reconstruction. HISTORY: [id number] history of smoking. COMPARISON: 08/29/2020. FINDINGS: There is no edema or pneumonia. No pleural effusion. No pneumothorax. There is an unchanged 6 mm right middle lobe nodule. A few other scattered nodules are unchanged and measuring up to 5 mm. There is a new 7 mm left upper lobe nodule (series 2, image 68). There is mucus plugging in the right lower lobe. Lungs are moderately emphysematous. There is no axillary or supraclavicular lymphadenopathy. There is no mediastinal lymphadenopathy. Heart size is normal. There are moderate coronary artery calcifications. No pericardial effusion. Aorta is normal in caliber. Limited views of the upper abdomen are unremarkable. There are no suspicious osseous lesions. IMPRESSION: 1. New 7 mm left upper lobe nodule. Three-month follow-up recommended. LUNG-RADS CATEGORY: 4a MODIFIER: None. Dictated by: Dictated on workstation # [id number]
== END ==
LOC: RAD 11:30
PROVIDERS: ATTEND Internal Medicine Critical Care Medicine
DX: Z12.2 Encounter for screening for malignant neoplasm of respiratory organs (principal); Z87.891 Personal history of nicotine dependence; J44.9 Chronic obstructive pulmonary disease, unspecified; R91.1 Solitary pulmonary nodule
CPT/HCPCS: 71271

== ENCOUNTER → 2023-04-22 | Outpatient (CLI) | payer MEDICARE ==
[~2023-04-22] MED LIST changes: +REGADENOSON 0.4 MG/5 ML SYR IV ONE
[2023-04-22 12:15] VITALS: BP 142/95
--- NOTE | 2023-04-22 16:29 | Cardiology Stress Test Report ---
Stress Test Report Date of Procedure/Referring: Date of Procedure: Apr 22, 2023 PCP Joe Cobb MD Admitting Physician Admitting Physician: Attending Physician: Luiz Sheridan MD [facility] Ccds Baseline Heart Rate: 57 Baseline Blood Pressure: Blood Pressure Systolic: 142 Blood Pressure Diastolic: 95 Baseline Vitals Vital Signs Date Time Temp Pulse Resp B/P (MAP) Pulse Ox O2 Delivery O2 Flow Rate FiO2 04/22/23 12:15 91 16 142/95 (111) 98 Nasal Cannula Baseline EKG: Baseline EKG: NSR Summary After explaining the procedure to the patient, he signed a consent and then brought to the stress nuclear laboratory. Patient received 0.4 mg Lexiscan for stress test, ECG, heart rate and blood pressure were monitored continuously. Resting and stress dose of radio tracer were injected, imaging was acquired and reviewed in short axis, horizontal long axis and vertical long axis views. TID: 0.97 SSS: 11 SDS: 1 EF: 56 Patient tolerated Lexiscan well Fixed defect involving the inferior wall and inferolateral wall Normal left ventricular size, ejection fraction 56% Cc ERICK Ocampo MD Apr 22, 2023 16:29
== END ==
LOC: CARD 10:00
PROVIDERS: ATTEND Internal Medicine Cardiovascular Disease
DX: I25.10 Atherosclerotic heart disease of native coronary artery without angina pectoris (principal)
CPT/HCPCS: 78452; 93017; A9502

== ENCOUNTER → 2023-04-22 | Outpatient (CLI) | payer MEDICARE ==
[~2023-04-22] MED LIST changes: +CATHETER FLUSH 10 ML SYR IVP PRN; -REGADENOSON 0.4 MG/5 ML SYR IV ONE
== END ==
LOC: CARD 13:15
PROVIDERS: ATTEND Internal Medicine Cardiovascular Disease
DX: Z53.9 Procedure and treatment not carried out, unspecified reason (principal)